=== PATIENT | male | born 1965 | race Caucasian/White ===

== ENCOUNTER 2019-01-23 00:42 | Emergency (ER) | payer BC, OTHER ==
[~2019-01-23] VITALS: Ht 167.6 cm; Wt 92.9 kg
[~2019-01-23 00:42] MED LIST: DICL100G37 TOP; MED4DP PO
[2019-01-23 00:47] VITALS: Ht 167.6 cm; Wt 92.9 kg
[2019-01-23] MEDS ORDERED: METHYLPREDNISOLONE 125 MG INJ IM ONE (01:30)
[2019-01-23] MEDS ORDERED: ACETAMINOPHEN 325 MG TAB PO ONE (01:30)
[2019-01-23] MEDS ORDERED: HYDROCODONE/APAP (5/325) TAB PO ONE (03:30)
[2019-01-23 03:32] VITALS: BP 170/104; PULSE 71; RESP 20
== END 2019-01-23 03:33 | disposition home or self-care (01) ==
LOC: FTE 00:42
DX: M54.2 Cervicalgia (principal)
CPT/HCPCS: 72040; 84484; 93005; 96372; J2930; Z7502; Z7610